=== PATIENT | male | born 1970 | race Two or more races ===

== ENCOUNTER 2023-06-23 16:47 | Emergency (ER) | payer SELFPAY ==
[2023-06-23 16:49] VITALS: BP 150/89
[2023-06-23] MEDS: ADACEL 0.5 ML IM (18:43)
[2023-06-23 18:48] VITALS: BP 125/70
[2023-06-23 19:02] VITALS: BP 125/70
--- NOTE | 2023-06-23 20:10 | ED.SKININJ ---
HPI-Injury
General
Chief Complaint: Skin Surface Trauma
Source: patient
Exam Limitations: none
Time Seen by Provider: 06/23/23 17:19
Nursing documentation reviewed up to this point in time: agreed with
Travel History
Have you had any contact with someone who has COVID-19?: No
Do you have any symptoms of coronavirus? Fever > 100 degrees, chills, cough, shortness of breath, sore throat, loss of taste or smell, muscle aches, or headache?: No
History of Present Illness-Injury
Is this injury a work related problem?: No
Is pt an associate of [facility]?: No
Initial Injury comments:
Patient state she hit head on machine. No LOC. Has small lac to left parietal scalp. complains of headache and dizziness. 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
Past History
Past History
ED Past Medical History: None
ED Past Surgical History: None
Review of Systems
Review of Systems
Allergies reviewed?: Yes
All Other Systems: ROS reviewed and negative except as documented in HPI and ROS
Constitutional: Reports no symptoms
EENT: Reports no symptoms
Respiratory: Reports no symptoms
Cardiac: Reports no symptoms
ABD/GI: Reports no symptoms
Musculoskeletal: Reports no symptoms
Skin: Reports other (lac to left parietal scalp)
Neurological: Reports dizzy and headache
Psychiatric: Reports no symptoms
Skin Exam
Laceration
Left Parietal:
Length in cm: 1
Orientation: vertical
Type of Laceration: simple
Any active bleeding?: no active bleeding
Distal skin color and temperature: normal-warm & good color
Normal distal neurovascular exam: Yes
Range of motion: full
Phy Exam
General Physical Exam
General Presentation: well appearing and no apparent distress
General age: appears stated age
General Skin: warm and dry
General Habitus: normal
General Mental: alert
Neurological Exam
Neurological Exam: alert, oriented x3, CN II-XII intact, no motor deficits and no sensory deficits
Derik Coma Scale
Eye Opening: Spontaneous
Verbal Response: Oriented
Motor Response: Obeys Commands
GCS Total Score: 15
Musculoskeletal Exam
Musculoskeletal Exam: full ROM and neuro vasc intact
Skin Exam
Skin Exam: normal color, warm/dry and no rash
Psychiatric Exam
Psychiatric Exam: normal mood/affect
Course
Orders/Labs/Results
Orders:
Orders
06/23/23 18:23
Tetanus/Diphth/Acelpertussis [Adacel] 0.5 ml IM .ONCE ONE
06/23/23 18:24
CT Head W/o Iv Contrast Urgent
Comment:
Reason For Exam: trauma
Vital Signs
Initial and Last Documented VS:
Initial Vital Signs
Temp Pulse Resp BP Pulse Ox
98.1 F 64 18 150/89 99
06/23/23 16:49 06/23/23 16:49 06/23/23 16:49 06/23/23 16:49 06/23/23 16:49
Last Documented Vital Signs
Temp Pulse Resp BP Pulse Ox
98.1 F 57 18 125/70 99
06/23/23 16:49 06/23/23 19:02 06/23/23 16:49 06/23/23 19:02 06/23/23 16:49
Procedures
Laceration Closure
Left Parietal:
Status of Wound: clean
Description of Wound Edges: sharp
Preparation: cleaned with soap & water
Revision/Debridement: routine- no revision
Wound exploration: explored to base- no FB
Type of Closure: Dermabond-skin glue
*Radiology
Radiology exam reviewed: radiology read reviewed
*Pulse Oximetry
Patient hypoxic: no
*Critical Care Note
Total Time (30-74mins, 75-104mins- exclusive of procedures): Not Applicable
ED Attending Note
-
Portions of this chart may have been created with voice recognition software.� Occasional wrong word or��sound alike� substitutions may have occurred due to the inherent limitations of voice recognition software.
Discharge Plan
Departure
Patient Disposition: Home (Routine Discharge)
Date of Disposition: 06/23/23
Time of Disposition: 18:54
Patient with high blood pressure during this ER visit?: No
Condition: Good
Covid-19: Not Applicable
Discharge Problem:
Head injury, Laceration of scalp
Instructions: Laceration Repair With Glue (DC), Head injury in adults
Referrals:
UNKNOWN - PT DOES,NOT KNOW [Family Provider] -
Activity Restrictions/Additional Instructions:
Follow up with your workman's comp provider in the AM
Interventions
Interventions:
*Risk Screen - Suicide Last Done: 06/23/23 16:49
*General Assessment Last Done: 06/23/23 16:49
*Neglect/Abuse Screening Last Done: 06/23/23 16:49
*Nursing Disposition Last Done: 06/23/23 19:02
ED-Skin Assessment Last Done: 06/23/23 16:59
Discharge Date and Time
Discharge Date/Time: 06/23/23 19:03
Print Language: [place] CITIZ[place]
== END 2023-06-23 19:03 | disposition home or self-care (01) ==
LOC: EMR 16:47
PROVIDERS: EMERGENCY PHYSICIAN Emergency Medicine
DX: S01.01XA Laceration without foreign body of scalp, initial encounter (principal); S09.90XA Unspecified injury of head, initial encounter; W22.8XXA Striking against or struck by other objects, initial encounter; Z23 Encounter for immunization
CPT/HCPCS: 99284; 12001; 90471; 70450; 90715